=== PATIENT | male | born 1945 | race Caucasian/White ===

== ENCOUNTER 2017-03-12 19:38 | Emergency (ER) | payer MEDICARE, OTHER ==
[2017-03-12] MEDS ORDERED: Naproxen 500 MG TAB ONE (20:59)
[2017-03-12] MEDS ORDERED: Fluconazole 100 MG TAB ONE (20:59)
[2017-03-12] MEDS ORDERED: AMOXicillin 250 MG CAP ONE (20:59)
== END 2017-03-12 21:25 | disposition home or self-care (01) ==
LOC: MADERS 19:38
DX: J02.9 Acute pharyngitis, unspecified (principal); G40.909 Epilepsy, unspecified, not intractable, without status epilepticus; F17.210 Nicotine dependence, cigarettes, uncomplicated
CPT/HCPCS: 96372; J1040

== ENCOUNTER 2017-04-10 09:58 | Emergency (ER) | payer MEDICARE, OTHER ==
[2017-04-10] MEDS ORDERED: Sulfameth/Trimethoprim DS 800-160mg TAB ONE (10:24)
== END 2017-04-10 10:30 | disposition home or self-care (01) ==
LOC: MADERS 09:58
DX: L02.01 Cutaneous abscess of face (principal); F17.210 Nicotine dependence, cigarettes, uncomplicated
CPT/HCPCS: 87070; 87205; 99283

== ENCOUNTER 2017-09-23 11:10 | Emergency (ER) | payer SELFPAY ==
[~2017-09-23 11:10] MED LIST: Sodium Chloride 0.9% 1,000 ML BAG ONE; Sodium Chloride 0.9% 100 ML BAG ONE
[2017-09-23] MEDS ORDERED: Fentanyl 100 MCG/2 ML VIAL ONE (11:25)
[2017-09-23] MEDS ORDERED: Ondansetron HCl/PF 4 MG/2 ML Vial ONE (11:25)
[2017-09-23] MEDS ORDERED: Ketorolac Tromethamine 30 MG/ML VIAL ONE (11:25)
[2017-09-23 12:49] LABS: Band 1 % (5-11); Hemoglobin 13.1 g/dL (14.0-18.0); Lymphocytes 6 % (21-51); MDiff Complete? YES; Mean Corpuscular HGB CONC 33.9 g/dL (32.0-36.0); Mean Corpuscular Hemoglobin 31.7 pg (27.0-31.0); Mean Corpuscular Volume 93.6 fl (80.0-94.0); Mean Platelet Volume 7.9 fL (7.4-10.4); Monocytes 3 % (0-10); Neutrophil 90 % (42-75); PLT Morphology Comment Appears Adequate; Platelet Count 284 thou/uL (130-400); RBC Distribution Width 12.8 % (11.5-14.5); Red Blood Cell (RBC) Count 4.14 mill/uL (4.70-6.10); White Blood Cell (WBC) Count 29.8 thou/uL (4.8-10.8)
[2017-09-23] MEDS ORDERED: cefTRIAXone\\ROCEPHIN 2 GM VIAL ONE ×2 (13:01→13:03)
[2017-09-23 13:07] LABS: ALT (SGPT) 7 U/L (8-55); AST (SGOT) 12 U/L (5-34); Albumin 3.1 g/dL (3.4-4.8); Alkaline Phosphatase 70 U/L (40-150); Anion Gap 16 mmol/L (10-20); BUN (Urea Nitrogen) 24 mg/dL (8.4-25.7); Bilirubin, Direct 0.4 mg/dL (0.1-0.3); Bilirubin, Total 0.7 mg/dL (0.2-1.2); Calc. Creatinine Clearance 0 mL/min (70-130); Carbon Dioxide 31 mmol/L (23-31); Chloride 98 mmol/L (98-107); Estimated GFR-MDRD Greater than 90; Globulin 3.5 g/dL (2.4-3.5); Glucose 150 mg/dL (80-115); Potassium 3.2 mmol/L (3.5-5.1); Protein, Total 6.6 g/dL (5.8-8.1); Sodium 142 mmol/L (136-145)
[2017-09-23 13:40] LABS: Bilirubin Negative (Negative); Blood, Urine Trace (Negative); Glucose, Urine (Dipstick) Negative (Negative); Leukocyte Negative (Negative); Nitrite Negative (Negative); Protein, Urine (Dipstick) 100 mg/dL (Neg-Trace); Specific Gravity, Urine 1.025 (1.005-1.030); pH, Urine 5.5 (5.0-9.0)
[2017-09-23 13:46] LABS: Calcium 12.4 mg/dL (7.8-10.44)
[2017-09-23 13:47] LABS: Clarity Hazy (Clear)
[2017-09-23 13:50] LABS: Bacteria/HPF Rare-Few HPF (None Seen); RBC/HPF 0-3 HPF (0-3); Squamous Epithelial 0-3 HPF (0-3); WBC/HPF 0-3 HPF (0-3)
== END 2017-09-23 15:15 | disposition home or self-care (01) ==
LOC: MADERS 11:10
DX: E83.52 Hypercalcemia (principal); K02.9 Dental caries, unspecified; G40.909 Epilepsy, unspecified, not intractable, without status epilepticus; F17.210 Nicotine dependence, cigarettes, uncomplicated
CPT/HCPCS: 36415; 80053; 80076; 81003; 81015; 85025; 87040; 87086; 96361; 96365; 96367; 96375; J0696; J1885; J2405; J3010; J3370; J7050

== ENCOUNTER 2017-09-24 12:45 | Emergency (ER) | payer SELFPAY ==
[~2017-09-24 12:45] MED LIST changes: -Sodium Chloride 0.9% 100 ML BAG ONE
[2017-09-24 13:24] LABS: Anion Gap 16 mmol/L (10-20); Hemoglobin 12.4 g/dL (14.0-18.0); Lymphocytes 7 % (21-51); MDiff Complete? YES; Mean Corpuscular HGB CONC 32.9 g/dL (32.0-36.0); Mean Corpuscular Hemoglobin 30.7 pg (27.0-31.0); Mean Corpuscular Volume 93.5 fl (80.0-94.0); Mean Platelet Volume 7.6 fL (7.4-10.4); Monocytes 5 % (0-10); Neutrophil 88 % (42-75); PLT Morphology Comment Appears Adequate; Platelet Count 329 thou/uL (130-400); RBC Distribution Width 13.1 % (11.5-14.5); Red Blood Cell (RBC) Count 4.02 mill/uL (4.70-6.10)
[2017-09-24 13:27] LABS: Lactic Acid 1.4 mmol/L (0.5-2.2)
[2017-09-24 13:29] LABS: ALT (SGPT) 12 U/L (8-55); AST (SGOT) 22 U/L (5-34); Albumin 3.2 g/dL (3.4-4.8); Alkaline Phosphatase 69 U/L (40-150); BUN (Urea Nitrogen) 22 mg/dL (8.4-25.7); Bilirubin, Total 0.7 mg/dL (0.2-1.2); Calc. Creatinine Clearance 0 mL/min (70-130); Calcium 13.3 mg/dL (7.8-10.44); Carbon Dioxide 32 mmol/L (23-31); Chloride 98 mmol/L (98-107); Estimated GFR-MDRD Greater than 90; Globulin 4.1 g/dL (2.4-3.5); Glucose 101 mg/dL (80-115); Magnesium 1.8 mg/dL (1.6-2.6); Potassium 3.1 mmol/L (3.5-5.1); Protein, Total 7.3 g/dL (5.8-8.1); Sodium 143 mmol/L (136-145)
== END 2017-09-24 15:40 | disposition left against medical advice (07) ==
LOC: MADERS 12:45
DX: E83.52 Hypercalcemia (principal); D72.829 Elevated white blood cell count, unspecified; G40.909 Epilepsy, unspecified, not intractable, without status epilepticus; F17.210 Nicotine dependence, cigarettes, uncomplicated
CPT/HCPCS: 36415; 80053; 83605; 83735; 84443; 85025; 96360; 96361; J7050

== ENCOUNTER 2017-09-25 11:44 | Emergency (ER) | payer SELFPAY ==
[~2017-09-25 11:44] MED LIST changes: +Iopamidol 370 76% 125 ML VIAL FS ONE; +Sodium Chloride 0.9% 100 ML BAG ONE
[2017-09-25] MEDS ORDERED: cefTRIAXone\\ROCEPHIN 1 GM VIAL ONE (12:53)
[2017-09-25 12:57] LABS: Bilirubin Negative (Negative); Blood, Urine Trace (Negative); Glucose, Urine (Dipstick) Negative (Negative); Leukocyte Negative (Negative); Nitrite Negative (Negative); Protein, Urine (Dipstick) Negative (Neg-Trace); Specific Gravity, Urine 1.015 (1.005-1.030)
[2017-09-25 13:02] LABS: Bacteria/HPF Rare-Few HPF (None Seen); Clarity Hazy (Clear); RBC/HPF 0-3 HPF (0-3); Squamous Epithelial 0-3 HPF (0-3); WBC/HPF 0-3 HPF (0-3)
[2017-09-25 13:21] LABS: #Basophils 0.1 thou/uL (0.0-0.2); #Eosinphils 0.1 thou/uL (0.0-0.7); #Lymphocytes 1.4 thou/uL (1.20-3.40); #Neutrophils 18.5 thou/uL (1.40-6.50); %Basophils 0.5 % (0.0-1.0); %Eosinophils 0.3 % (0.0-10.0); %Lymphocytes 6.5 % (21.0-51.0); %Monocytes 9.2 % (0.0-10.0); %Neutrophils 83.6 % (42.0-75.0); Mean Corpuscular HGB CONC 32.8 g/dL (32.0-36.0); Mean Corpuscular Hemoglobin 30.6 pg (27.0-31.0); Mean Corpuscular Volume 93.3 fl (80.0-94.0); Mean Platelet Volume 7.9 fL (7.4-10.4); Platelet Count 293 thou/uL (130-400); RBC Distribution Width 12.7 % (11.5-14.5); Red Blood Cell (RBC) Count 3.94 mill/uL (4.70-6.10); White Blood Cell (WBC) Count 22.1 thou/uL (4.8-10.8)
[2017-09-25 13:28] LABS: INR-International Normal Ratio 1.2; Prothrombin Time 14.9 SEC (12.0-14.7)
[2017-09-25 13:39] LABS: ALT (SGPT) 13 U/L (8-55); AST (SGOT) 21 U/L (5-34); Alkaline Phosphatase 67 U/L (40-150); Anion Gap 18 mmol/L (10-20); BUN (Urea Nitrogen) 14 mg/dL (8.4-25.7); Bilirubin, Total 0.7 mg/dL (0.2-1.2); Calc. Creatinine Clearance 0 mL/min (70-130); Carbon Dioxide 31 mmol/L (23-31); Chloride 97 mmol/L (98-107); Estimated GFR-MDRD Greater than 90; Globulin 3.9 g/dL (2.4-3.5); Glucose 102 mg/dL (80-115); Protein, Total 6.9 g/dL (5.8-8.1); Sodium 144 mmol/L (136-145)
[2017-09-25 13:41] LABS: CKMB 3.9 ng/mL (0-6.6); Troponin I 0.033 ng/mL (< 0.028)
[2017-09-25 13:44] LABS: Calcium 12.5 mg/dL (7.8-10.44); Lipase Less than 4 U/L (8-78); Potassium 2.4 mmol/L (3.5-5.1)
[2017-09-25] MEDS ORDERED: Potassium Chloride 20 MEQ/100 ML PREMIX BAG ONE (14:26)
[2017-09-25] MEDS ORDERED: Adenosine 6 MG/2 ML VIAL ONE ×2 (14:52→14:59)
--- NOTE | 2017-09-25 15:20 | RAD ---
PORTABLE CHEST: Comparison: 12-05-15 History: Difficulty breathing. FINDINGS: Heart size appears borderline for portable technique. Aorta is tortuous. The lungs are clear of any i nfiltrates. IMPRESSION: No active intrathoracic disease. POS: [facility]
[2017-09-25] MEDS ORDERED: NS 0.9% w/ 20 MEQ KCL 1,000 ML ONE (15:53)
--- NOTE | 2017-09-25 17:13 | CT ---
CT OF NECK PERFORMED WITH INTRAVENOUS CONTRAST ENHANCEMENT: History: Difficulty breathing. FINDINGS: There is a large thick walled enhancing mass. The epicenter is felt to be more along the region of th e base of the tongue. It measures approximately 5.9 cm in diameter. The central portion is of low att enuation. There is air density within it. It is irregular in shape and appearance. It is associated w ith what appears to be a markedly swollen tongue. The mass also appears to be lying beneath the tongu e but also extends superiorly into the right side of the nasopharynx. There is significant airway com promise. The airway is deviated to the left related to this lesion. The vocal cords are unremarkable. There is obliteration of the vallecula and right pyriform sinus regions related to the mass. There are enlarged submandibular nodes noted more on the right side. There is not a significant degre e of adenopathy along the jugular chain. IMPRESSION: 1. Large fungating necrotic appearing mass which appears to originate in the oral cavity. It is assoc iated with tongue swelling. It has central low attenuation with air density within it. This suggests necrosis. It could be secondarily infected. I would think this would be unlikely to represent solely an infectious process. 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 It is causing significant a irway narrowing and deviation of the airway to the left. These findings were telephoned to the [facility] in [place]. 2. Enlarged jugular digastric nodes. 3. Submandibular adenopathy and bilateral enlarged jugulodigastric nodes. POS: [facility]
== END 2017-09-25 17:22 | disposition short-term general hospital (02) ==
LOC: MADERS 11:44
DX: E87.6 Hypokalemia (principal); E83.52 Hypercalcemia; I47.1 Supraventricular tachycardia; I48.91 Unspecified atrial fibrillation; K13.79 Other lesions of oral mucosa; F17.210 Nicotine dependence, cigarettes, uncomplicated
CPT/HCPCS: 36415; 70492; 71010; 80053; 81003; 81015; 82553; 83605; 83690; 84484; 85025; 85610; 85730; 87086; 93005; 96361; 96365; 96367; 96368; 96375; 96376; 99292; J0153; J0696; J3370; J3480; J7050